=== PATIENT | male | born 1965 | race Caucasian/White ===

== ENCOUNTER 2017-07-11 19:48 | Emergency (ER) | payer SELFPAY ==
[~2017-07-11] VITALS: Ht 182.9 cm; Wt 97.7 kg
[~2017-07-11 19:48] MED LIST: DESYREL 100MG100 MG PO; WELLBUTRIN XL300 M1 PO
[2017-07-11 20:12] VITALS: BP 152/89; PULSE 65; TEMP 98.1
[2017-07-11] MEDS ORDERED: CATAFLAM50 MG (20:15)
[2017-07-11] MEDS ORDERED: NEURONTIN600 MG/TAB PO (20:15)
[2017-07-11] MEDS ORDERED: ZOLOFT 50MG50 MG PO (20:15)
== END 2017-07-11 20:41 | disposition left against medical advice (07) ==
LOC: COL.ER 19:48
DX: T18.9XXA Foreign body of alimentary tract, part unspecified, initial encounter (principal); X58.XXXA Exposure to other specified factors, initial encounter

== ENCOUNTER → 2017-11-18 | Outpatient (CLI) | payer SELFPAY ==
[~2017-11-18] MED LIST changes: +CATAFLAM50 MG PO; +NEURONTIN600 MG/TAB PO; +ZOLOFT 50MG50 MG PO
== END ==
LOC: COL.RAD 13:54
DX: N40.0 Benign prostatic hyperplasia without lower urinary tract symptoms (principal); R59.0 Localized enlarged lymph nodes; N32.9 Bladder disorder, unspecified
CPT/HCPCS: Q9967

== ENCOUNTER → 2017-11-19 | Outpatient (CLI) | payer SELFPAY ==
[2017-11-19] VITALS (10 sets, daily range): BP systolic 125–138; BP diastolic 70–93; PULSE 58–68
[~2017-11-19] VITALS: Ht 182.9 cm; Wt 91.7 kg
== END ==
LOC: COL.RAD 10:41
DX: R19.04 Left lower quadrant abdominal swelling, mass and lump (principal)

== ENCOUNTER 2018-08-14 18:04 | Emergency (ER) | payer SELFPAY ==
[~2018-08-14] VITALS: Ht 182.9 cm; Wt 73.1 kg
[~2018-08-14 18:04] MED LIST changes: +SEROQUEL 1100 MG/TAB PO
[2018-08-14 18:08] VITALS: TEMP 97.1
[2018-08-14 18:58] LABS: BILIRUBIN,TOTAL 0.6 mg/dL (0.0-1.0); CALCIUM 9.7 mg/dL (8.4-10.2); CREATININE, serum 1.26 mg/dL (0.66-1.25); TOTAL PROTEIN 7.8 gm/dL (6.4-8.2)
[2018-08-14 19:06] LABS: BASO % 0.5 % (0.0-2.0); EOS # 0.6 (0.0-0.7); EOS % 8.6 % (0-4.0); GRAN # 3.7 (1.4-6.5); GRAN % 57.7 % (42.2-75.2); HEMATOCRIT 41.2 % (42.0-52.0); HEMOGLOBIN 13.9 g/dl (13.5-18.0); LYMPH # 0.6 (1.2-3.4); MEAN CELL VOLUME 85 fl (80.0-100.0); MEAN CORPUSCULAR HEMOGLOBIN 29 pg (27.0-31.0); MEAN CORPUSCULAR HGB CONC 34 g/dl (33.0-37.0); MEAN PLATELET VOLUME 10.3 fl (7.4-10.4); MONO # 1.5 (0.1-0.6); MONO % 22.9 % (1.7-9.3); PLATELET COUNT 123 K/mm3 (130-400); RED BLOOD COUNT 4.87 M/mm3 (4.20-5.60); REDCELL DISTRIBUTION WIDTH-CV 17.4 % (11.5-14.5)
[2018-08-14] MEDS ORDERED: ATIVAN 1MG T1 MG/TAB PO (19:26)
[2018-08-14 19:32] LABS: BAND 1 % (0-10); EOSINOPHIL 5 % (0-4); LYMPHOCYTE 8 % (20.0-51.0); NEUTROPHILS 66 % (42.0-75.2); PLATELET ESTIMATE NORMAL (NORMAL)
[2018-08-14 19:35] LABS: COLLECTION METHOD CLEAN CATCH
[2018-08-14 19:40] LABS: PH 6 (5-8); SQUAMOUS EPITHELIAL None Seen /hpf; URINE APPEARANCE Clear; URINE BACTERIA None Seen /hpf; URINE BILIRUBIN Negative (NEGATIVE); URINE BLOOD 1+ (NEGATIVE); URINE COLOR Yellow; URINE GLUCOSE Negative (NEGATIVE); URINE KETONE Negative (NEGATIVE); URINE LEUKOCYTE ESTERASE Negative (NEGATIVE); URINE NITRATE Negative (NEGATIVE); URINE PROTEIN(semi-quant) Negative (NEGATIVE); URINE RBC 0-2 /hpf; URINE UROBILINOGEN Negative (NEGATIVE)
[2018-08-14 19:45] LABS: POIKILOCYTOSIS 2+
[2018-08-14] MEDS ORDERED: PHENERGAN 25 TA25 MG PO (19:54)
[2018-08-14 20:06] VITALS: BP 128/90; PULSE 86
== END 2018-08-14 20:04 | disposition home or self-care (01) ==
LOC: COL.ER 18:04
PROVIDERS: Emergency Medicine
DX: C76.2 Malignant neoplasm of abdomen (principal); R11.0 Nausea
CPT/HCPCS: J0780; J2405; J2550; J7030